=== PATIENT | female | born 1955 | race Two or more races ===

== ENCOUNTER 2020-05-07 12:56 | Outpatient (CLI) | payer OTHER | END 2020-05-07 13:14 | disposition home or self-care (01) | LOC: NUCLEAR 12:56 | PROVIDERS: ATTEND Internal Medicine Cardiovascular Disease | DX: E55.9 Vitamin D deficiency, unspecified (principal); M81.0 Age-related osteoporosis without current pathological fracture ==

== ENCOUNTER 2021-05-08 11:25 | Outpatient (CLI) | payer OTHER | END 2021-05-08 11:35 | disposition home or self-care (01) | LOC: RAD 11:25 | PROVIDERS: ATTEND Internal Medicine Cardiovascular Disease | DX: M12.88 Other specific arthropathies, not elsewhere classified, other specified site (principal) ==

== ENCOUNTER 2021-05-14 08:18 | Outpatient (CLI) | payer OTHER | END 2021-05-14 08:43 | disposition home or self-care (01) | LOC: SONOGRAMA 08:18 → MAMO-SONO 09:15 | PROVIDERS: ATTEND Internal Medicine Cardiovascular Disease | DX: M25.461 Effusion, right knee (principal); M12.861 Other specific arthropathies, not elsewhere classified, right knee ==

== ENCOUNTER 2023-10-20 05:00 | Emergency (ER) | payer OTHER ==
[~2023-10-20] VITALS: Ht 167.6 cm; Wt 81.6 kg
== END 2023-10-20 10:48 | disposition home or self-care (01) ==
LOC: ER
DX: G43.809 Other migraine, not intractable, without status migrainosus (principal); I10 Essential (primary) hypertension; Z20.822 Contact with and (suspected) exposure to COVID-19
CPT/HCPCS: 96372; 99282; J1885; J2250

== ENCOUNTER 2023-12-20 11:58 | Outpatient (CLI) | payer OTHER | END 2023-12-20 12:02 | disposition home or self-care (01) | LOC: RAD 11:58 | PROVIDERS: ATTEND Internal Medicine Cardiovascular Disease | DX: R10.9 Unspecified abdominal pain (principal) ==

== ENCOUNTER 2024-10-02 11:37 | Outpatient (CLI) | payer OTHER ==
[~2024-10-02 11:37] MED LIST: COZAAR50 MG PO; TOPROL XL50 M1 PO
== END 2024-10-02 11:41 | disposition home or self-care (01) ==
LOC: RAD 11:37
PROVIDERS: ATTEND Internal Medicine Cardiovascular Disease
DX: M12.9 Arthropathy, unspecified (principal)